=== PATIENT | female | born 1945 | race Hispanic/Latino ===

== ENCOUNTER → 2018-12-13 | Outpatient (CLI) | payer MEDICARE | END | disposition home or self-care (01) | LOC: OIH 14:29 | PROVIDERS: ATTEND Family Medicine | DX: M47.816 Spondylosis without myelopathy or radiculopathy, lumbar region (principal); M16.0 Bilateral primary osteoarthritis of hip; M25.852 Other specified joint disorders, left hip; M25.851 Other specified joint disorders, right hip; M41.86 Other forms of scoliosis, lumbar region; M25.78 Osteophyte, vertebrae; M85.852 Other specified disorders of bone density and structure, left thigh; M85.851 Other specified disorders of bone density and structure, right thigh; M85.89 Other specified disorders of bone density and structure, multiple sites; W08.XXXA Fall from other furniture, initial encounter; Y93.89 Activity, other specified; Y92.89 Other specified places as the place of occurrence of the external cause; Y99.8 Other external cause status | CPT/HCPCS: 71110; 72070; 72100; 72220; 73521 ==

== ENCOUNTER → 2020-05-12 | Outpatient (CLI) | payer OTHER, MEDICARE | END | disposition home or self-care (01) | LOC: OIH 09:47 | PROVIDERS: ATTEND Family Medicine | DX: S63.233A Subluxation of proximal interphalangeal joint of left middle finger, initial encounter (principal); M25.642 Stiffness of left hand, not elsewhere classified; M19.042 Primary osteoarthritis, left hand; X58.XXXA Exposure to other specified factors, initial encounter; Y93.89 Activity, other specified; Y92.89 Other specified places as the place of occurrence of the external cause; Y99.8 Other external cause status | CPT/HCPCS: 73130 ==